=== PATIENT | female | born 1995 ===

== ENCOUNTER 2017-03-21 21:51 | Emergency (ER) | payer MEDICAID ==
--- NOTE | ~2017-03-21 | ER ---
[facility] AGE[facility] 22 Y [address] ROOM: [place] [address] LOCATION: [facility] ADMIT DATE: 03/21/2017 ER/Outpatient Report DISCHARGE DATE: 03/21/2017 FAMILY PHYSICIAN: Julio Lewis MD ATTENDING PHYSICIAN: Saul Riddle Time of Arrival: 2151 hours. Time of Evaluation: 2202 hours. CHIEF COMPLAINT: Left toe injury. HISTORY OF PRESENT ILLNESS: This is a 22-year-old female, who presents to the ER, who states that she injured her left pinky toe about 9 hours prior to arrival. She states she got her toe bent back wrong when she was in a vehicle. She states she was evaluated at Urgent Care, and they said that they did not see any fracture. She states she does not believe them. She thinks that she has a fracture to her toe because it is still hurting her. She did take some ibuprofen and Tylenol prior to arrival. ALLERGIES: OXYCODONE AND OXYCONTIN. MEDICATIONS: Please see medication list in nurse's notes. PAST MEDICAL HISTORY: Asthma, hypertension, allergies. PAST SURGICAL HISTORY: Left ankle surgery, x2, cholecystectomy. SOCIAL HISTORY: Alcohol very rarely. Denies any smoking use. REVIEW OF SYSTEMS: CONSTITUTIONAL: Denies any change in weight or fatigue. MUSCULOSKELETAL: She is complaining of a left pinky toe pain. HEME: No easy bruising or bleeding. SKIN: No lesions or rashes. PHYSICAL EXAMINATION: VITAL SIGNS: Height 5 feet 5 inches stated, weight 136.8 kg taken, blood pressure is 135/71, pulse 96, respirations 16, temperature 98 degrees [facility] AGE: 22 Y [address] ROOM: [place] [address] LOCATION: [facility] ADMIT DATE: 03/21/2017 ER/Outpatient Report DISCHARGE DATE: 03/21/2017 FAMILY PHYSICIAN: Julio Lewis MD ATTENDING PHYSICIAN: Saul Riddle tympanically, and saturations 95% on room air. [place] Coma Score is 15. GENERAL: An alert, morbidly obese female, in no acute distress. EXTREMITIES: No clubbing or cyanosis. She does have full range of motion of all limbs. MUSCULOSKELETAL: She does have tenderness with palpation over her left pinky toe. She has no tenderness in her 4th or 5th metatarsal. She has full range of motion of all other limbs. NEUROLOGIC: Cranial nerves 2 through 12 grossly intact. Gait is steady without assistance. LABORATORY DATA: Labs, none were done. X-RAYS: X-rays of the left foot show a small chip fracture to the left 5th digit on her foot. IMPRESSION: Left fifth digit fracture to the left foot. ASSESSMENT AND PLAN: We will place the patient orthotic shoe for support. Needs to ice and elevate. We did give her [place] here in the emergency room for pain. She may take Tylenol or ibuprofen as needed for pain control. She will follow up with her primary care physician if needed. The patient understands and agrees with care. MICHELLE VILLALBA PA-C FOR MD TASHA VERDE/buzz /[id number] d: t: 03/25/17 1359, OUTPATIENT REPORT
== END 2017-03-21 22:30 | disposition disaster alternative care site (69) ==
LOC: GACC 21:51
DX: S92.515A Nondisplaced fracture of proximal phalanx of left lesser toe(s), initial encounter for closed fracture (principal); I10 Essential (primary) hypertension; J45.909 Unspecified asthma, uncomplicated; Z90.49 Acquired absence of other specified parts of digestive tract; Z98.890 Other specified postprocedural states; Z88.5 Allergy status to narcotic agent; Z88.8 Allergy status to other drugs, medicaments and biological substances; Z79.899 Other long term (current) drug therapy; X58.XXXA Exposure to other specified factors, initial encounter